=== PATIENT | male | born 1965 | race Caucasian/White ===

== ENCOUNTER → 2017-06-30 | Outpatient (CLI) | payer MEDICARE | END | disposition home or self-care (01) | LOC: RAD 14:03 → EDBD 14:03 | PROVIDERS: ATTEND Family Medicine | DX: M86.9 Osteomyelitis, unspecified (principal); G82.50 Quadriplegia, unspecified; R25.1 Tremor, unspecified; L89.314 Pressure ulcer of right buttock, stage 4; L89.324 Pressure ulcer of left buttock, stage 4; M79.2 Neuralgia and neuritis, unspecified; N31.9 Neuromuscular dysfunction of bladder, unspecified; M62.81 Muscle weakness (generalized); L89.311 Pressure ulcer of right buttock, stage 1; R13.12 Dysphagia, oropharyngeal phase; M54.5 Low back pain; E03.9 Hypothyroidism, unspecified | CPT/HCPCS: 72195 ==

== ENCOUNTER 2021-01-16 20:42 | Emergency (ER) | payer MEDICARE ==
[~2021-01-16] VITALS: Ht 180.3 cm; Wt 94.0 kg
[2021-01-16 20:45] VITALS: BP 126/75
[2021-01-16 22:03] LABS: BASOPHILS % (AUTO) 1 % (0-1); EOSINOPHILS % (AUTO) 2 % (1-7); LYMPHOCYTES % (AUTO) 24 % (22-44); MEAN CORPUSCULAR HGB CONC 34.2 g/dL (33.2-36.2); MEAN PLATELET VOLUME 8.6 fL (7.4-10.4); MONOCYTES % (AUTO) 9 % (2-9); NEUTROPHILS % (AUTO) 65 % (42-75); PLATELET COUNT 304 x10^3/uL (130-400); RED BLOOD COUNT 5.08 x10^6/uL (4.38-5.82); RED CELL DISTRIBUTION WIDTH 14.8 % (9.4-14.8)
[2021-01-16 22:12] LABS: AMPHETAMINE SCREEN, URINE Positive (Negative); BARBITURATE SCREEN, URINE Negative (Negative); BENZODIAZEPINE SCREEN, URINE Negative (Negative); CANNABINOID SCREEN, URINE Positive (Negative); COCAINE SCREEN, URINE Negative (Negative); METHADONE SCREEN, URINE Negative (Negative); OPIATE SCREEN, URINE Positive (Negative)
[2021-01-16 22:15] LABS: ALANINE AMINOTRANSFERASE 41 U/L (12-78); ALBUMIN 3.5 g/dL (3.4-5.0); ANION GAP 7 mmol/L (5-15); CALCIUM 9.2 mg/dL (8.5-10.1); CHLORIDE 107 mmol/L (98-107); CREATININE 0.54 mg/dL (0.7-1.3)
[2021-01-16 22:15] LABS: MICROSCOPIC INDICATED
[2021-01-16 22:17] LABS: ALKALINE PHOSPHATASE 127 U/L (45-117); BILIRUBIN,TOTAL 0.6 mg/dL (0.2-1.0); SALICYLATE LEVEL < 1.7 mg/dL (2.8-20.0); TOTAL PROTEIN 8.3 g/dL (6.4-8.2)
[2021-01-16] MEDS ORDERED: CEFDINIR 300 MG CAPSULE ONE (22:50)
[2021-01-16] MEDS ORDERED: PLEASE ENTER ALLERGIES MC SCH (23:00)
[2021-01-16] MEDS ORDERED: CEFDINIR 300 MG CAPSULE PO ONE (23:00)
--- NOTE | 2021-01-16 23:09 | NUR ---
Patient given discharge instructions and they have confirmed that they understand the instructions. Patient ambulatory with steady gait. NAD, all questions answered appropriately, denies additional needs at this time. No personal belongings left in room after discharge. AWAITING [facility] TRANSPORT BACK HOME.
--- NOTE | 2021-01-17 00:56 | NUR ---
REPORT GIVEN TO [facility].
--- NOTE | 2021-01-17 00:57 | NUR ---
PATIENT REFUSED TO LISTEN TO DISCHARGE PAPERWORK STATING WE DIDNT HELP HIM WITH HIS BUGS IN HIS THROAT SO "FUCK ALL OF YOU."
== END 2021-01-17 00:59 | disposition home or self-care (01) ==
LOC: ED 21:27
DX: N30.01 Acute cystitis with hematuria (principal); F15.10 Other stimulant abuse, uncomplicated
CPT/HCPCS: 36415; 80053; 80299; 80307; 80320; 80329; 81001; 85025; 87086; 99283; G0480